=== PATIENT | male | born 1960 | race Caucasian/White ===

== ENCOUNTER 2022-05-28 11:41 | Emergency (ER) | payer OTHER ==
[~2022-05-28] VITALS: Ht 170.2 cm; Wt 68.2 kg
[~2022-05-28 11:41] MED LIST: CARB100 PO; DIPH25CA85 PO; DIVA-112 PO; LEVE500T20 PO; LISI-894 PO; OLAN7.5T22 PO; PARO-38 PO; PHENY100 PO; RISP2TAB45 PO; ZOLP-280 PO; [UNRECOGNIZED DRUG - OTHER] PO
[2022-05-28 12:08] VITALS: BP 175/99
[2022-05-28 12:29] LABS: BASOPHILS % (AUTO) 0.3 % (0.0-2.0); EOSINOPHILS % (AUTO) 0.3 % (1.0-6.0); HEMATOCRIT 41.7 % (41-53); HEMOGLOBIN 13.7 g/dL (13.5-17.5); LYMPHOCYTES # (AUTO) 1.6 K/uL (1.0-4.8); LYMPHOCYTES % (AUTO) 25.4 % (22.0-44.0); MEAN CORPUSCULAR HGB CONC 32.9 G/dL (31.0-37.0); MEAN CORPUSCULAR VOLUME 85 fL (80-100); MONOCYTES # (AUTO) 0.5 K/uL (0.1-1.0); MONOCYTES % (AUTO) 8.6 % (2.0-9.0); NEUTROPHILS # (AUTO) 4.2 K/uL (1.8-7.7); NEUTROPHILS % (AUTO) 65.4 % (40.0-70.0); PLATELET COUNT (AUTO) 233 K/uL (150-450); RED BLOOD CELL COUNT(AUTO) 4.89 MIL/uL (4.50-5.90); RED CELL DISTRIBUTION WIDTH 16.3 % (11.5-14.5)
[2022-05-28 12:43] LABS: ANION GAP 2 mmol/L (8-16); CARBON DIOXIDE 29 mmol/L (22-29); CHLORIDE 101 mmol/L (98-107); CREATININE 0.63 mg/dL (0.60-1.30); GLOMERULAR FILTR. RATE CALC > 60 mL/min (>60); GLUCOSE,RANDOM 88 mg/dL (70-110); POTASSIUM 3.4 mmol/L (3.5-5.1); SODIUM SERUM 132 mmol/L (136-145); UREA NITROGEN, BLOOD 14 mg/dL (7-18)
[2022-05-28 12:47] LABS: ALANINE AMINOTRANSFERASE 24 U/L (12-78); ALKALINE PHOSPHATASE 75 U/L (46-116); ASPARTATE AMINOTRANSFERASE 26 U/L (15-37); BILIRUBIN,TOTAL 0.7 mg/dL (0.1-1.0)
== END 2022-05-28 16:06 | disposition left against medical advice (07) ==
LOC: EMS 11:41
DX: Z53.21 Procedure and treatment not carried out due to patient leaving prior to being seen by health care provider (principal)
CPT/HCPCS: 80053; 85025; 36415; G0480

== ENCOUNTER 2024-11-02 08:50 | Inpatient (IN) | payer MEDICAID, OTHER ==
[~2024-11-02] VITALS: Ht 185.4 cm; Wt 66.2 kg
[2024-11-02 10:02] LABS: BASOPHILS % (AUTO) 0.4 % (0.0-2.0); EOSINOPHILS % (AUTO) 1.8 % (1.0-6.0); HEMATOCRIT 33.2 % (41-53); LYMPHOCYTES # (AUTO) 0.8 K/uL (1.0-4.8); MEAN CORPUSCULAR HEMOGLOBIN 28.6 pg (26.0-34.0); MEAN CORPUSCULAR VOLUME 87 fL (80-100); MONOCYTES # (AUTO) 0.7 K/uL (0.1-1.0); MONOCYTES % (AUTO) 10.4 % (2.0-9.0); NEUTROPHILS # (AUTO) 4.9 K/uL (1.8-7.7); NEUTROPHILS % (AUTO) 75.4 % (40.0-70.0); PLATELET COUNT (AUTO) 449 K/uL (150-450); RED BLOOD CELL COUNT(AUTO) 3.83 MIL/uL (4.50-5.90); RED CELL DISTRIBUTION WIDTH 15.8 % (11.5-14.5); WHITE BLOOD COUNT (AUTO) 6.5 K/uL (4.5-11.0)
[2024-11-02 10:13] LABS: ANION GAP 4 mmol/L (8-16); CALCIUM, TOTAL 8.3 mg/dL (8.8-10.5); CARBON DIOXIDE 29 mmol/L (22-29); CHLORIDE 103 mmol/L (98-107); CREATININE 0.46 mg/dL (0.60-1.30); GLOMERULAR FILTR. RATE CALC > 60 mL/min (>60); GLUCOSE,RANDOM 95 mg/dL (70-110); POTASSIUM 3.8 mmol/L (3.5-5.1); SODIUM SERUM 136 mmol/L (136-145); UREA NITROGEN, BLOOD 14 mg/dL (7-18)
[2024-11-02] MEDS: SODIUM CHLORIDE 0.9% 1,000 ML IV ONE ×2 (10:20→15:50)
[2024-11-02 11:18] LABS: AMPHET/METH SCREEN,URINE POSITIVE (NEGATIVE); BARBITURATE SCREEN, URINE NEGATIVE (NEGATIVE); BENZODIAZEPINES SCREEN,URINE NEGATIVE (NEGATIVE); CANNABINOID SCREEN,URINE NEGATIVE (NEGATIVE); COCAINE SCREEN,URINE NEGATIVE (NEGATIVE); METHADONE SCREEN, URINE NEGATIVE (NEGATIVE); OPIATE SCREEN,URINE NEGATIVE (NEGATIVE); PHENCYCLIDINE SCREEN,URINE NEGATIVE (NEGATIVE)
[2024-11-02 11:28] LABS: ALCOHOL, URINE DRUG SCREEN NEGATIVE (NEGATIVE)
[2024-11-02] MEDS: AmLODIPine BESYLATE 5 MG TABLET PO ONE ×2 (11:51→17:06)
[2024-11-02] MEDS ORDERED: ONDANSETRON HCL 4 MG/2 ML VIAL IVP PRN (15:00)
[2024-11-02] MEDS ORDERED: BISACODYL 10 MG RECTAL RECTAL SUPPOSITORY PR PRN (15:00)
[2024-11-02] MEDS ORDERED: HYDROCODONE/ACETAMINOPHEN 5-325 MG TABLET PO PRN (15:00)
[2024-11-02] MEDS ORDERED: MORPHINE SULFATE 2 MG/ML SYRINGE IVP PRN (15:00)
[2024-11-02] MEDS ORDERED: MAGNESIUM HYDROXIDE SUSPENSION 30 ML UDCUP PO PRN (15:00)
[2024-11-02] MEDS ORDERED: ACETAMINOPHEN 325 MG TABLET PO PRN (15:00)
[2024-11-02] MEDS: HEPARIN SODIUM,PORCINE 5,000 UNITS/ML VIAL SQ SCH (15:50)
[2024-11-02] MEDS: MAGNESIUM SULFATE 2 GM, MVI, ADULT NO.1 WITH VIT K 10 ML, THIAMINE 100 MG, FOLIC ACID 1... IV ONE (16:12)
[2024-11-02 18:10] VITALS: BP 171/102; PULSE 88; RESP 20; TEMP 98.4; O2SAT 97
[2024-11-02 19:33] VITALS: BP 143/92; PULSE 96; RESP 19; TEMP 98.5; O2SAT 97
[2024-11-02 20:30] VITALS: BP 172/85; PULSE 94; RESP 20; TEMP 97.8; O2SAT 95
[2024-11-02] MEDS: LABETALOL HCL 5 MG/ML 20 ML VIAL IVP ONE (20:30)
[2024-11-02] MEDS: BACITRACIN 28 GM OINTMENT TP SCH (20:30)
[2024-11-02] MEDS: DOCUSATE SODIUM 100 MG CAPSULE PO SCH (21:00)
[2024-11-02] MEDS: ZOLPIDEM TARTRATE 5 MG TABLET PO PRN (21:47)
[2024-11-02 22:30] VITALS: BP 135/91; PULSE 68
[2024-11-02] MEDS: LORazepam 2 MG/ML VIAL IVP ONE (22:31)
[2024-11-03 04:00] VITALS: BP 135/66; PULSE 87; RESP 20; TEMP 97.7; O2SAT 95
[2024-11-03 07:36] LABS: BASOPHILS % (AUTO) 0.9 % (0.0-2.0); HEMOGLOBIN 10.4 g/dL (13.5-17.5); LYMPHOCYTES # (AUTO) 0.7 K/uL (1.0-4.8); LYMPHOCYTES % (AUTO) 20.9 % (22.0-44.0); MEAN CORPUSCULAR HEMOGLOBIN 28.4 pg (26.0-34.0); MEAN CORPUSCULAR HGB CONC 32.6 G/dL (31.0-37.0); MEAN CORPUSCULAR VOLUME 87 fL (80-100); MONOCYTES # (AUTO) 0.3 K/uL (0.1-1.0); MONOCYTES % (AUTO) 9.5 % (2.0-9.0); NEUTROPHILS # (AUTO) 2.3 K/uL (1.8-7.7); NEUTROPHILS % (AUTO) 64.7 % (40.0-70.0); PLATELET COUNT (AUTO) 406 K/uL (150-450); RED BLOOD CELL COUNT(AUTO) 3.68 MIL/uL (4.50-5.90); RED CELL DISTRIBUTION WIDTH 16.1 % (11.5-14.5); WHITE BLOOD COUNT (AUTO) 3.6 K/uL (4.5-11.0)
[2024-11-03 07:49] LABS: ANION GAP 6 mmol/L (8-16); CALCIUM, TOTAL 8.1 mg/dL (8.8-10.5); CARBON DIOXIDE 28 mmol/L (22-29); CHLORIDE 103 mmol/L (98-107); CREATININE 0.54 mg/dL (0.60-1.30); GLOMERULAR FILTR. RATE CALC > 60 mL/min (>60); GLUCOSE,RANDOM 118 mg/dL (70-110); POTASSIUM 3.8 mmol/L (3.5-5.1); SODIUM SERUM 137 mmol/L (136-145); UREA NITROGEN, BLOOD 9 mg/dL (7-18)
[2024-11-03 08:07] VITALS: BP 113/54; PULSE 78; RESP 18; TEMP 98.1; O2SAT 96
[2024-11-03] MEDS: AmLODIPine BESYLATE 5 MG TABLET PO SCH (08:29)
[2024-11-03] MEDS: PANTOPRAZOLE SODIUM 40 MG DR TABLET PO SCH (08:30)
[2024-11-03 16:06] VITALS: BP 142/86; PULSE 85; RESP 18; TEMP 98; O2SAT 98
[2024-11-03 19:26] VITALS: BP 123/72; PULSE 83; RESP 20; TEMP 97.9; O2SAT 94
[2024-11-04 05:45] VITALS: BP 138/76; PULSE 92; RESP 18; TEMP 98; O2SAT 96
[2024-11-04 16:04] VITALS: BP 152/83; PULSE 88; RESP 16; TEMP 98.1; O2SAT 96
[2024-11-04 19:42] VITALS: BP 147/77; PULSE 80; RESP 19; TEMP 98.5; O2SAT 95
[2024-11-05 05:02] VITALS: BP 153/88; PULSE 83; RESP 18; TEMP 97.6; O2SAT 96
[2024-11-05 07:36] VITALS: BP 160/91; PULSE 85; RESP 18; TEMP 98; O2SAT 95
[2024-11-05] MEDS ORDERED: BACITRACIN 28 GM OINTMENT TP SCH (09:00)
[2024-11-05 14:00] VITALS: BP 137/86; PULSE 86; RESP 18; TEMP 97.3; O2SAT 100
[2024-11-05 20:12] VITALS: BP 148/81; PULSE 79; RESP 18; TEMP 97.3; O2SAT 95
[2024-11-06 05:50] VITALS: BP 144/77; PULSE 76; RESP 19; TEMP 98.4; O2SAT 96
[2024-11-06 08:14] VITALS: BP 179/84; PULSE 69; RESP 20; TEMP 97.7; O2SAT 95
[2024-11-06] MEDS ORDERED: ACET-3385 PO (08:51)
[2024-11-06] MEDS ORDERED: OLAN5TAB52 PO (09:09)
[2024-11-06] MEDS ORDERED: ASPI-1450 PO (09:09)
[2024-11-06] MEDS ORDERED: OXYC5 PO (09:09)
[2024-11-06] MEDS ORDERED: METH-659 PO (09:09)
[2024-11-06] MEDS ORDERED: SENN-302 PO (09:09)
[2024-11-06] MEDS ORDERED: GABA-1181 PO (09:09)
[2024-11-06] MEDS ORDERED: MULT-1303 PO (09:09)
[2024-11-06] MEDS ORDERED: AMLO-257 PO (09:09)
[2024-11-06 11:10] VITALS: BP 135/78; PULSE 75; RESP 19; O2SAT 94
[2024-11-06 16:26] VITALS: BP 133/84; PULSE 80; RESP 20; TEMP 97.7; O2SAT 96
[2024-11-06 20:27] VITALS: BP 120/71; PULSE 87; RESP 18; TEMP 97.9; O2SAT 96
[2024-11-06] MEDS: OLANZapine 10 MG TABLET PO SCH (20:27)
[2024-11-07 05:46] VITALS: BP 157/96; PULSE 84; RESP 20; TEMP 97.5; O2SAT 94
[2024-11-07 08:00] VITALS: BP 154/73; PULSE 76; RESP 18; TEMP 97.8; O2SAT 94
[2024-11-07 09:00] VITALS: BP 138/88; PULSE 85; RESP 18; O2SAT 99
== END 2024-11-07 13:30 | disposition home or self-care (01) | DRG 812 ==
LOC: EMS 08:51 → EDH 14:49 → 6N 18:05 → 6S 20:02
PROVIDERS: ADMIT Internal Medicine; ATTEND Internal Medicine
DX: T43.651A Poisoning by methamphetamines accidental (unintentional), initial encounter (principal); G92.8 Other toxic encephalopathy; E43 Unspecified severe protein-calorie malnutrition; E86.0 Dehydration; R62.7 Adult failure to thrive; M79.604 Pain in right leg; F15.10 Other stimulant abuse, uncomplicated; D64.9 Anemia, unspecified; I10 Essential (primary) hypertension; Y92.9 Unspecified place or not applicable; Z59.00 Homelessness unspecified; Z68.1 Body mass index [BMI] 19.9 or less, adult
CPT/HCPCS: 70450; 71045; 80048; 80307; 85025; 93005; 97116; 97162; 97530; 99285; J1644; J2060; J3411; J3475; J3490; J7030; 36415-L1; 36415-TC